=== PATIENT | male | born 1960 | race Caucasian/White ===

== ENCOUNTER → 2020-05-19 | Outpatient (CLI) | payer BC ==
[~2020-05-19] MED LIST: ALBUIS
[2020-05-20 11:49] LABS: Stool Occult Bld Immuno 1 Positive (NEGATIVE)
== END | disposition home or self-care (01) ==
LOC: LAB SHORT 05:15 → LAB 05:15
PROVIDERS: Nurse Practitioner Family
DX: K92.1 Melena (principal); R19.7 Diarrhea, unspecified
CPT/HCPCS: 82274

== ENCOUNTER 2021-12-15 11:31 | Day surgery (SDC) | payer BC ==
[~2021-12-15] VITALS: Ht 182.9 cm; Wt 134.6 kg
== END 2021-12-15 15:30 | disposition home or self-care (01) ==
LOC: ORSCSDS 11:31
PROVIDERS: Internal Medicine Gastroenterology
PROC: 0D758ZZ Dilation of Esophagus, Via Natural or Artificial Opening Endoscopic (ICD-10-PCS; principal; 2021-12-15 13:00)
PROC: 0DBL8ZX Excision of Transverse Colon, Via Natural or Artificial Opening Endoscopic, Diagnostic (ICD-10-PCS; principal; 2021-12-15 13:00)
PROC: 0DB78ZX Excision of Stomach, Pylorus, Via Natural or Artificial Opening Endoscopic, Diagnostic (ICD-10-PCS; principal; 2021-12-15 13:00)
DX: K92.1 Melena (principal); R11.2 Nausea with vomiting, unspecified; R13.14 Dysphagia, pharyngoesophageal phase; D12.3 Benign neoplasm of transverse colon; Z86.010 Personal history of colon polyps; R10.13 Epigastric pain; K44.9 Diaphragmatic hernia without obstruction or gangrene; K57.30 Diverticulosis of large intestine without perforation or abscess without bleeding; K64.8 Other hemorrhoids; K22.10 Ulcer of esophagus without bleeding; Z87.891 Personal history of nicotine dependence
CPT/HCPCS: 88305; 88342; C1726; J0330; J0461; J2405; J2704

== ENCOUNTER 2024-08-07 06:44 | Observation (INO) | payer BC ==
[2024-08-07] VITALS (14 sets, daily range): BP systolic 135–175; BP diastolic 80–101
[~2024-08-07] VITALS: Ht 182.9 cm; Wt 112.0 kg
[~2024-08-07 06:44] MED LIST changes: +ALBU90OI INH; -ALBUIS; +Acetaminophen 500 MG Tab PO SCH; +Lactated Ringer's 1,000 ML IV SCH; +OMEP20ER PO
[2024-08-07] MEDS ORDERED: Bupivacaine 0.5% HCl 5 MG/ML 30MLVIAL ONE (07:07)
[2024-08-07] MEDS ORDERED: propofoL 20 ML IV ONE (07:25)
[2024-08-07] MEDS ORDERED: FentaNYL Citrate 50 MCG/ML 5 ML Injection ONE ×2 (07:26→08:48)
[2024-08-07] MEDS ORDERED: Ondansetron HCl 2 MG / ML 2ML Vial ONE (07:26)
[2024-08-07] MEDS ORDERED: Rocuronium Bromide 10 MG/ML 5ML Injection IV ONE ×3 (07:26→10:24)
[2024-08-07] MEDS ORDERED: Lidocaine HCl 2% 20 ML MDV ONE (07:26)
[2024-08-07] MEDS ORDERED: Dexamethasone Sod Phos 10 MG/ML 1ML VIAL ONE (07:26)
[2024-08-07] MEDS ORDERED: Ketorolac Tromethamine 30mg Vial ONE (07:26)
--- NOTE | 2024-08-07 07:36 | NUR ---
Ambulatory in Day SurgeryPre-Op teaching done. Pt verbalizes understanding. History, Chart, Medications and Allergies reviewed before start of procedure.Patient confirms NPO status and agrees with scheduled surgery. Patient reports completing Chlorhexadine shower X2 prior to admission to hospital.
[2024-08-07] MEDS ORDERED: Glycopyrrolate 0.2 MG/ML 5ML VIAL ONE (08:19)
[2024-08-07] MEDS ORDERED: Sugammadex Sodium 200 MG/2ML SDV (100 MG/ML) ONE (08:38)
[2024-08-07] MEDS ORDERED: FentaNYL Citrate 50 MCG/ML 2 ML Injection ONE ×3 (10:32→12:14)
[2024-08-07] MEDS ORDERED: FLU VACC TS2024-25(6MOS UP)/PF 45 MCG/0.5 ML SYRINGE IM SCH (12:10)
[2024-08-07] MEDS ORDERED: Ondansetron HCl 2 MG / ML 2ML Vial IV PRN (12:10)
--- NOTE | 2024-08-07 12:45 | NUR ---
ARRIVAL TO UNIT PT ARRIVED TO UNIT FROM PACU VIA GURNEY, SLID WITH SHEET. PT TOLERATED WELL. CURRENTLY REPORTS NO PAIN. ASKED FOR WATER, TOLERATING SMALL SIPS WELL. SPOUSE AT BEDSIDE. PT ON 2L NASAL CANULA, SATS 93%, CURRENTLY ATTEMPTING TO REST. LAP SITES CDI. CALL LIGHT IN REACH, EDUCATED PT ON IMPORTANCE OF CALLING AT FIRST SIGNS OF PAIN INCREASING.
[2024-08-07] MEDS ORDERED: HYDROmorphone HCl/Pf 1MG SYR IV PRN (13:15)
[2024-08-07] MEDS ORDERED: Acetaminophen 325 MG TABLET PO PRN (13:15)
[2024-08-07] MEDS ORDERED: OxyCODONE HCL 5 MG TAB PO PRN (13:15)
[2024-08-07] MEDS ORDERED: Metoclopramide HCl 5MG / ML 2ML Vial IV PRN (13:45)
[2024-08-07] MEDS ORDERED: Prochlorperazine Edisylate 10 mg Vial IV PRN (13:45)
--- NOTE | 2024-08-07 17:22 | NUR ---
SHIFT SUMMARY S/P FUNDOPLICATION. PT TOLERATING CLEAR LIQUIDS AT THIS TIME. WANTED TO TRY FULL LIQUID DIET FOR DINNER. EDUCATED PT ON TAKING HIS TIME EATING AND TO NOTIFY IF HE HAS ANY NAUSEA. PT AGREEABLE. PAIN TOLERABLE AT THIS TIME. TITRATING OXYGEN DOWN. LAP SITES REMAIN UNCHANGE SINCE ARRIVAL. SPOUSE AT BEDSIDE. PT DENIES FURTHER NEEDS AT THIS TIME.
[2024-08-08 02:10] VITALS: BP 167/97
--- NOTE | 2024-08-08 02:43 | NUR ---
CONSULT CALL TO MD ANSWERING SERVICE IN RELATION TO PT HYPERTENSION, AWAITING RETURN CALL
--- NOTE | 2024-08-08 03:34 | NUR ---
SPOKE WITH DR CHAPARRO REGARDING PTS BP WITH NO NEW ORDERS RECEIVED AND DR CHAPARRO ADVISED ME TO HAVE PTS NURSE CONTINUE TO MONITOR THROUGH THE NIGHT.
--- NOTE | 2024-08-08 04:05 | NUR ---
SHIFT SUMMARY POD 1 JONI PARAESOPHAGELA HERNIA. NO ACUTE CHANGES OVERNIGHT. VSS, PT HYPERTENSIVE POST-OP, MONITORING PER MD ORDERS. TOLERATING FULL LIQUID DIET. AMB SBA R/T PAIN. VOIDING. PT REPORTS PAIN IN MID CHEST & ABD, STATES "IT FEELS DIFFICULT TO TAKE A DEEP BREATH BECAUSE OF THE PAIN." PT EDUCATED c RELAXATION TECHNIQUES, DEEP BREATHING ENCOURAGED. PT REPORTS PAIN TOLERABLE AT THIS TIME, MEDICATED PER EMAR. PT EDUCATED ON SPLINTING TECHNIQUE WHEN COUGHING. LAP SITE x4 C/D/I c MIN BRUISING. CALL LIGHT IN REACH, BED IN LOWEST POSITION, WILL REPORT TO DAY RN.
[2024-08-08 05:51] LABS: Hemoglobin 14.7 g/dL (13.5-17.5); Mean Corpuscular HGB 30.7 pg (26.0-34.0); Mean Corpuscular HGB Conc 33.4 g/dL (31.5-36.5); Mean Corpuscular Volume 92 fL (80-100); Mean Platelet Volume 11.2 fL (9.1-12.4); Platelet Count 300 K/mm3 (150-400); RDW Standard Deviation 43.8 fL (35.1-46.3); Red Blood Cell Count 4.79 M/mm3 (4.30-5.90)
[2024-08-08 07:27] VITALS: BP 154/95
[2024-08-08] MEDS ORDERED: Enoxaparin 40 MG/0.4 ML SYR SC SCH (09:00)
[2024-08-08] MEDS ORDERED: Albuterol HFA200 ACT/6.7 GM INH INH PRN (09:25)
--- NOTE | 2024-08-08 09:26 | NUR ---
PT REPORTED SOME SHORTNESS OF BREATH UPON AM ASSESSMENT. PT REPORTED SOME CHEST MUSCLE SORENESS WELL. PT REPORTS TAKING HIS HOME ALBUTEROL INHALER WHILE IN THE HOSPITAL BUT STATES THE INHALER BROKE. REQUESTED THAT PT NOT TAKE ANY OF HIS HOME MEDICATIONS AND INSTEAD ALLOW HOSPITAL STAFF TO ADMINISTER ALL MEDICATIONS. ORDER OBTAINED FROM DR. CHAPARRO FOR ALBUTEROL INHALER AT PT'S HOME DOSE. RESPIRATORY THERAPY NOTIFIED OF ORDER. PT REPORTS SHORTNESS OF BREATH HAS IMPROVED AT THIS TIME.
[2024-08-08] MEDS ORDERED: Polyethylene Glycol 3350 17 gm PO ONE (12:15)
[2024-08-08] MEDS ORDERED: Simethicone 80 MG Chew PO ONE (12:15)
[2024-08-08] MEDS ORDERED: Acetaminophen650 M1 PO (13:44)
[2024-08-08] MEDS ORDERED: OXYC5 PO (13:45)
[2024-08-08 14:00] VITALS: BP 150/91
--- NOTE | 2024-08-08 14:11 | NUR ---
DISCHARGE PT AND HIS SPOUSE WERE PROVIDED WITH WRITTEN AND VERBAL DISCHARGE INSTRUCTIONS; THEY REPORTED UNDERSTANDING. AT TIME OF DISCHARGE PT HAS BEEN ABLE TO TOLERATE PO, HE REPORTS HE HAS NOT PASSED FLATUS (DR. PABLO AWARE). PT ABLE TO AMBULATE IN THE [place]. PAIN MANAGED AT TIME OF DISCHARGE. BP SLIGHTLY ELEVATED 150/91, PT EDUCATED TO FOLLOW-UP WITH PCP REGARDING BLOOD PRESSURE, PT REPORTS HE HAS NOT SEEN HIS PCP IN 2-3 YEARS. PT AMBULATED OUT INDEPENDENTLY AT 1411.
== END 2024-08-08 14:10 | disposition home or self-care (01) ==
LOC: ORSCMMR 06:44 → ORD 08:00 → EDSTATUS 08:00 → ORSCMMR 08:00 → SURS 12:22 → ORSCMMR 12:23 → SURS 13:20
PROVIDERS: ADMIT Surgery
PROC: 0BUT4JZ Supplement Diaphragm with Synthetic Substitute, Percutaneous Endoscopic Approach (ICD-10-PCS; principal; 2024-08-07 08:00)
DX: K44.9 Diaphragmatic hernia without obstruction or gangrene (principal); K21.9 Gastro-esophageal reflux disease without esophagitis; J45.909 Unspecified asthma, uncomplicated; E66.811 Obesity, class 1; Z68.33 Body mass index [BMI] 33.0-33.9, adult; Z87.891 Personal history of nicotine dependence; Z79.899 Other long term (current) drug therapy; Z88.5 Allergy status to narcotic agent; Z91.048 Other nonmedicinal substance allergy status
CPT/HCPCS: 36415; 85027; 94760; A9270; C1781; J1100; J1171; J1650; J1885; J2405; J2704; J3010; J7120

== ENCOUNTER 2024-10-24 10:32 | Emergency (ER) | payer BC ==
[~2024-10-24] VITALS: Ht 182.9 cm; Wt 108.0 kg
[~2024-10-24 10:32] MED LIST changes: -Acetaminophen 500 MG Tab PO SCH; +Acetaminophen650 M1 PO; -Lactated Ringer's 1,000 ML IV SCH; +OXYC5 PO
[2024-10-24] MEDS ORDERED: NS 1,000 ML IV SCH (11:25)
[2024-10-24] MEDS ORDERED: OxyCODONE 5 mg/Acetamin 325 mg TABLET PO ONE (11:30)
[2024-10-24] MEDS ORDERED: Ondansetron HCl 2 MG / ML 2ML Vial IV ONE (11:30)
[2024-10-24 11:41] LABS: BASOPHILS ABSOLUTE AUTO 0.08 K/mm3 (0.00-0.23); BASOPHILS PERCENT AUTO 0 % (0-2); EOSINOPHILS ABSOLUTE AUTO 0.03 K/mm3 (0.00-0.68); EOSINOPHILS PERCENT AUTO 0 % (0-6); Hematocrit 36.1 % (37.0-53.0); Hemoglobin 12.6 g/dL (13.5-17.5); IMMATURE GRAN ABSOLUTE AUTO 0.15 K/mm3 (0.00-0.10); IMMATURE GRAN PERCENT AUTO 1 % (0-1); LYMPHOCYTES ABSOLUTE AUTO 1.21 K/mm3 (0.84-5.20); LYMPHOCYTES PERCENT AUTO 6 % (21-46); MONOCYTES ABSOLUTE AUTO 2.47 K/mm3 (0.16-1.47); MONOCYTES PERCENT AUTO 12 % (4-13); Mean Corpuscular HGB 30.3 pg (26.0-34.0); Mean Corpuscular HGB Conc 34.9 g/dL (31.5-36.5); Mean Corpuscular Volume 87 fL (80-100); Mean Platelet Volume 10.6 fL (9.1-12.4); NEUTROPHILS ABSOLUTE AUTO 16.76 K/mm3 (1.96-9.15); NEUTROPHILS PERCENT AUTO 81 % (41-73); Platelet Count 337 K/mm3 (150-400); RDW Coefficient Variation 12.7 % (11.7-14.2); RDW Standard Deviation 40.6 fL (35.1-46.3); Red Blood Cell Count 4.16 M/mm3 (4.30-5.90)
[2024-10-24 11:54] LABS: Albumin, Blood 2.8 g/dL (3.4-5.0); Albumin/Globulin Ratio 0.6 (0.8-1.8); Bilirubin, Total 0.9 mg/dL (0.1-1.0); Bun/Creatinine Ratio 17.9 (12.0-20.0); Calcium, Blood 8.7 mg/dL (8.5-10.1); Creatinine, Blood 0.61 mg/dL (0.60-1.20); Globulin, Blood 4.7 g/dL (2.2-4.0); Potassium, Blood 3.5 mmol/L (3.5-5.5); Total Protein, Blood 7.5 g/dL (6.4-8.2)
[2024-10-24 13:43] LABS: Source, Urine Clean Catch
[2024-10-24 13:47] LABS: Appearance, Urine Clear (Clear); Bilirubin, Urine Neg (Neg); Blood, Urine 5+ (Neg); Color, Urine Amber (P-Yellow); Glucose Qualitative, Urine Neg (Neg); Ketones, Urine 1+ (Neg); Leukocyte Esterase, Urine 1+ (Neg); Nitrite, Urine Neg (Neg); Protein, Urine 3+ (Neg); Urobilinogen, Urine 2+ (Normal); pH, Urine 6.5 (5.0-8.0)
[2024-10-24 14:10] LABS: Bacteria Mod /hpf; Red Blood Cells, Urine 25-50 /hpf (0-2); Squamous Epithelial Cells Rare /hpf (Few)
[2024-10-24 16:30] VITALS: BP 129/82
[2024-10-24] MEDS ORDERED: CEPH250A PO (19:40)
== END 2024-10-24 17:00 | disposition home or self-care (01) ==
LOC: ER 10:32
PROVIDERS: Student in an Organized Health Care Education/Training Program
DX: R10.13 Epigastric pain (principal); J06.9 Acute upper respiratory infection, unspecified; N39.0 Urinary tract infection, site not specified; Z98.890 Other specified postprocedural states; Z88.8 Allergy status to other drugs, medicaments and biological substances; Z87.891 Personal history of nicotine dependence
CPT/HCPCS: 71260; 74177; 80053; 81001; 83605; 83690; 85025; 87086; 96361; 96374-59; 99284-25; A9270; J2405; J7030; Q9967

== ENCOUNTER 2024-11-24 13:48 | Day surgery (SDC) | payer BC ==
[~2024-11-24] VITALS: Ht 182.9 cm; Wt 98.5 kg
[~2024-11-24 13:48] MED LIST changes: +CEPH250A PO; +Glycopyrrolate 0.2 MG/ML 1MLVIAL ONE; +Lactated Ringer's 1,000 ML IV ONE; +Lidocaine 2% 5 ML SDV ONE; +Lidocaine HCl/Pf 1% 5 ML VIAL ONE; +Methylene Blue 1% 100 MG/10 ML VIAL ONE; +Ondansetron HCl 2 MG / ML 2ML Vial ONE; +ePHEDrine Sulfate 50 MG/ML 1ML Injection ONE; +propofoL 50 ML IV ONE
[2024-11-24] MEDS ORDERED: Diflucan100 MG (14:36)
[2024-11-24] MEDS ORDERED: AMOX-CLAV 875-1 EAC5 PO (14:37)
[2024-11-24] MEDS ORDERED: Lactated Ringer's 1,000 ML IV ONE (14:51)
[2024-11-24 15:58] VITALS: BP 120/78
== END 2024-11-24 15:45 | disposition home or self-care (01) ==
LOC: ORSCSDS 13:48
PROVIDERS: Surgery
PROC: 0DJ08ZZ Inspection of Upper Intestinal Tract, Via Natural or Artificial Opening Endoscopic (ICD-10-PCS; principal; 2024-11-24 15:15)
DX: R10.13 Epigastric pain (principal); R63.4 Abnormal weight loss; K22.2 Esophageal obstruction; Z98.890 Other specified postprocedural states; R61 Generalized hyperhidrosis; Z87.891 Personal history of nicotine dependence; Z79.899 Other long term (current) drug therapy
CPT/HCPCS: C1726; J2003; J2405; J2704; J7120; Q9968

== ENCOUNTER 2024-11-26 09:21 | Inpatient (IN) | payer BC ==
[~2024-11-26] VITALS: Ht 182.9 cm; Wt 98.5 kg
[~2024-11-26 09:21] MED LIST changes: +AMOX-CLAV 875-1 EAC5 PO; +Diflucan100 MG; -Glycopyrrolate 0.2 MG/ML 1MLVIAL ONE; -Lactated Ringer's 1,000 ML IV ONE; -Lidocaine 2% 5 ML SDV ONE; -Lidocaine HCl/Pf 1% 5 ML VIAL ONE; -Methylene Blue 1% 100 MG/10 ML VIAL ONE; -Ondansetron HCl 2 MG / ML 2ML Vial ONE; -ePHEDrine Sulfate 50 MG/ML 1ML Injection ONE; -propofoL 50 ML IV ONE
[2024-11-26] MEDS ORDERED: Ampicillin Sod/Sulbactam Sod 3 GM in NS 100 ML IV ONE (10:00)
[2024-11-26] MEDS ORDERED: Ondansetron HCl 2 MG / ML 2ML Vial IV ONE (10:10)
[2024-11-26 10:34] LABS: BASOPHILS ABSOLUTE AUTO 0.05 K/mm3 (0.00-0.23); BASOPHILS PERCENT AUTO 0 % (0-2); EOSINOPHILS ABSOLUTE AUTO 0.08 K/mm3 (0.00-0.68); EOSINOPHILS PERCENT AUTO 1 % (0-6); Hematocrit 31.7 % (37.0-53.0); Hemoglobin 10.2 g/dL (13.5-17.5); IMMATURE GRAN ABSOLUTE AUTO 0.06 K/mm3 (0.00-0.10); IMMATURE GRAN PERCENT AUTO 1 % (0-1); LYMPHOCYTES ABSOLUTE AUTO 1.62 K/mm3 (0.84-5.20); LYMPHOCYTES PERCENT AUTO 13 % (21-46); MONOCYTES ABSOLUTE AUTO 0.82 K/mm3 (0.16-1.47); MONOCYTES PERCENT AUTO 7 % (4-13); Mean Corpuscular HGB 28.9 pg (26.0-34.0); Mean Corpuscular HGB Conc 32.2 g/dL (31.5-36.5); Mean Corpuscular Volume 90 fL (80-100); Mean Platelet Volume 9.8 fL (9.1-12.4); NEUTROPHILS ABSOLUTE AUTO 9.79 K/mm3 (1.96-9.15); NEUTROPHILS PERCENT AUTO 79 % (41-73); Platelet Count 519 K/mm3 (150-400); RDW Coefficient Variation 13.3 % (11.7-14.2); RDW Standard Deviation 43.9 fL (35.1-46.3); Red Blood Cell Count 3.53 M/mm3 (4.30-5.90); White Blood Cell Count 12.42 K/mm3 (4.00-11.30)
[2024-11-26 10:44] LABS: International Normalized Ratio 1.16; Prothrombin Time Results 12.3 Sec (9.7-11.5)
[2024-11-26 10:56] LABS: Albumin, Blood 2.4 g/dL (3.4-5.0); Albumin/Globulin Ratio 0.4 (0.8-1.8); Bilirubin, Total 0.3 mg/dL (0.1-1.0); Bun/Creatinine Ratio 12.6 (12.0-20.0); Calcium, Blood 9.1 mg/dL (8.5-10.1); Creatinine, Blood 0.79 mg/dL (0.60-1.20); Globulin, Blood 5.8 g/dL (2.2-4.0); Potassium, Blood 3.6 mmol/L (3.5-5.5); Total Protein, Blood 8.2 g/dL (6.4-8.2)
[2024-11-26] MEDS ORDERED: Heparin Sodium 5000 Units/ML 1ML MDV IV ONE ×2 (11:00→21:00)
[2024-11-26] MEDS ORDERED: Heparin Sodium,Porcine/0.5 NS 500 ML IV SCH (11:00)
[2024-11-26] MEDS ORDERED: Lactated Ringer's 1,000 ML IV SCH (11:55)
[2024-11-26] MEDS ORDERED: Ondansetron HCl 2 MG / ML 2ML Vial IV PRN (11:55)
[2024-11-26 13:21] VITALS: BP 109/76
[2024-11-26] MEDS ORDERED: Albuterol HFA200 ACT/6.7 GM INH INH PRN (15:00)
[2024-11-26 15:19] VITALS: BP 107/73
[2024-11-26] MEDS ORDERED: Pantoprazole Sodium 40 MG Injection IV SCH (16:30)
--- NOTE | 2024-11-26 16:42 | NUR ---
PT ARRIVED FROM ED @ 1300 VIA STRETCHER. HE AMBULATED TO BED AND THEN RESTROOM W/SBA. A&Ox4 ON RA AND ON A HEP GTT AND LR PER EMAR. ADMISSION HISTORY AND ASSESSMENT COMPLETED. PT NOW HAS A SOFT, BITE SIZED DIET. PT IS SLIGHTLY JAUNDICED.
[2024-11-26] MEDS ORDERED: Ampicillin Sod/Sulbactam Sod 3 GM in NS 100 ML IV SCH (18:00)
[2024-11-26 19:50] VITALS: BP 110/73
[2024-11-26 23:54] VITALS: BP 112/80
[2024-11-27 03:09] VITALS: BP 104/73
[2024-11-27 03:31] LABS: Hematocrit 30.5 % (37.0-53.0); Hemoglobin 9.8 g/dL (13.5-17.5); Mean Corpuscular HGB 28.8 pg (26.0-34.0); Mean Corpuscular HGB Conc 32.1 g/dL (31.5-36.5); Mean Corpuscular Volume 90 fL (80-100); Mean Platelet Volume 10.2 fL (9.1-12.4); Platelet Count 392 K/mm3 (150-400); RDW Coefficient Variation 13.5 % (11.7-14.2); RDW Standard Deviation 44.5 fL (35.1-46.3); White Blood Cell Count 9.85 K/mm3 (4.00-11.30)
[2024-11-27 04:00] LABS: Albumin, Blood 2.1 g/dL (3.4-5.0); Anion Gap 9 mmol/L (3-11); Blood Urea Nitrogen 10 mg/dL (8-24); Bun/Creatinine Ratio 11.4 (12.0-20.0); CO2, Blood 26 mmol/L (21-32); Calcium, Blood 8.5 mg/dL (8.5-10.1); Chloride, Blood 104 mmol/L (98-108); Creatinine, Blood 0.88 mg/dL (0.60-1.20); Glomerular Filtration Rate 96 (60-); Glucose, Blood 105 mg/dL (70-99); Magnesium, Blood 1.9 mg/dL (1.6-2.4); Phosphorus, Blood 3.6 mg/dL (2.5-4.9); Potassium, Blood 3.9 mmol/L (3.5-5.5); Sodium, Blood 135 mmol/L (136-145)
[2024-11-27] MEDS ORDERED: Dose Adjust by Pharmacy XX STA (04:04)
[2024-11-27] MEDS ORDERED: Heparin Sodium 5000 Units/ML 1ML MDV IV ONE (04:05)
--- NOTE | 2024-11-27 04:17 | NUR ---
SHIFT SUMMARY: PT AOX4, ABLE TO MAKE NEEDS KNOWN TO STAFF. ON TELE W/ SR, BBB, HRS >80S. DENIES CP/PRESSURE. SOB, DENIES PAIN IN ABDOMEN. HEP/GTT CURRENTLY RUNNING PER EMAR. PT UTILIZES CALL LIGHT D/T FALL RISK W/ IV TUBING, NO ACUTE CHANGES THIS SHIFT. BED AT LOWEST POSITION AND CALL LIGHT WITHIN REACH. PT RESTING COMFORTABLY IN BED, BREATHING EVEN AND UNLABORED.
[2024-11-27 07:35] VITALS: BP 110/75
[2024-11-27 11:14] VITALS: BP 109/76
[2024-11-27] MEDS ORDERED: Apixaban 5 MG Tab PO SCH (12:00)
--- NOTE | 2024-11-27 14:20 | NUR ---
Pt. is awake in bed and welcomess my visit. Spouse is at bedside. Facilitate a short life review as I introduce myself. Listen with interest and empathy. Pt. displays evidence of being alert and engaged. Aft er further life story prayed with the Pt. Both Pt. and spouse verbalize gratitude for the spiritual care visit.
[2024-11-27 15:53] VITALS: BP 123/81
--- NOTE | 2024-11-27 16:37 | NUR ---
SHIFT SUMMARY PT A&Ox4, CALLS AND COMMUNICATES NEEDS APPROPRIATELY. BP STABLE, SINUS 60's, DENIES CP/PRESSURE. SpO2> 92% RA, DENIES SOB. IND IN ROOM. NO C/O PAIN. ABD SOFT AND NON-TENDER. HEPARIN gtt DISCONTINUED PER ORDER, SWITCHED TO PO ELIQUIS. NO OTHER EVENTS, WILL REPORT TO ONCOMING RN.
[2024-11-27 19:39] VITALS: BP 121/78
[2024-11-27 23:10] VITALS: BP 133/85
[2024-11-28 03:41] VITALS: BP 125/84
--- NOTE | 2024-11-28 04:46 | NUR ---
SHIFT SUMMARY PT A&O X4, ABLE TO MAKE NEEDS KNOWN, INDEPENDENT IN ROOM. VSS, AFEBRILE, SPO2 >95% ON RA. LR AND ABX INFUSING PER EMAR. PT DENIES CP OR SOB THIS SHIFT. HE IS RESTING IN BED, CALL LIGHT IN REACH, BREATHING IS EVEN AND UNLABORED.
--- NOTE | 2024-11-28 09:53 | NUR ---
D/C LR IVF PER PER HACK
[2024-11-28] MEDS ORDERED: PANTOPRAZOLE SO PO (11:30)
[2024-11-28] MEDS ORDERED: ELIQUIS5 M2 PO (11:30)
--- NOTE | 2024-11-28 12:30 | NUR ---
DISCHARGE REVIEWED WITH PT AND SPOUSE. IV PULLED BY AIDE AND TELE RETUREND BY AIDE. PT TO WALK SELF WITH SPOUSE TO DOOR. PT VERBALIZED UNDERSTANDING MEDS, FOLLOWFUP, AND INST. PT TO DOOR AT 1231
[2024-11-29 23:54] LABS: HOMOCYSTEINE, TOTAL 12 umol/L (0-15)
[2024-11-29 23:55] LABS: B2GLYCOPROTEIN 1, IGG ANTIBODY <10 SGU (<=20); B2GLYCOPROTEIN 1, IGM ANTIBODY <10 SMU (<=20)
[2024-11-30 10:15] LABS: CARDIOLIPIN ANTIBODY IGG <10 GPL (<=14); CARDIOLIPIN ANTIBODY IGM <10 MPL (<=12)
[2024-11-30 14:04] LABS: ANTI-XA QUALITATIVE INTERP Present (Not Present); ANTICOAG MEDICATION NEUTRALIZ Hepzyme (Not Performed); DRVVT 1:1 MIX RATIO Not Performed (<=1.20); DRVVT CONFIRMATION RATIO Not Performed (<=1.20); DRVVT SCREEN RATIO 1.07 (<=1.20); HEXAGONAL PHOSPHOLIPID CONFIRM Not Performed s (<=7.9); NEUTRALIZED DRVVT SCREEN RATIO Not Performed (<=1.20); NEUTRALIZED PTT-LA RATIO 1.16 (<=1.20); PROTHROMBIN TIME (PT) 16.6 s (12.0-15.5); PTT-LA RATIO 2.64 (<=1.20); THROMBIN TIME (TT) 83.2 s (<=19.5)
[2024-11-30 14:05] LABS: PROTEIN C FUNCTIONAL 72 % (83-168)
[2024-11-30 14:59] LABS: PROTEIN S AG FREE 148 % (74-147)
[2024-11-30 16:14] LABS: APC RESISTANCE 4.11 (>=2.00); FACTOR V LEIDEN BY PCR Not Done; FACV REF SPECIMEN Not Done
[2024-11-30 16:40] LABS: ANTITHROMBIN, ENZYM (ACTIVITY) 75 % (76-128)
[2024-12-04] MEDS ORDERED: Apixaban 5 MG Tab PO SCH (09:00)
== END 2024-11-28 12:46 | disposition home or self-care (01) | DRG 441 ==
LOC: ER 09:21 → PCU 11:53 → ERHOLD 11:53 → PCU 12:55
PROVIDERS: Emergency Medicine; ADMIT Internal Medicine
DX: I81 Portal vein thrombosis (principal); K75.0 Abscess of liver; J45.909 Unspecified asthma, uncomplicated; L40.9 Psoriasis, unspecified; E66.811 Obesity, class 1; Z68.33 Body mass index [BMI] 33.0-33.9, adult; Z98.890 Other specified postprocedural states; Z87.891 Personal history of nicotine dependence; Z88.8 Allergy status to other drugs, medicaments and biological substances; Z79.899 Other long term (current) drug therapy; K21.9 Gastro-esophageal reflux disease without esophagitis; R10.13 Epigastric pain; R63.4 Abnormal weight loss; K22.2 Esophageal obstruction; R61 Generalized hyperhidrosis
CPT/HCPCS: 36415; 71260; 74177; 80053; 80069; 83605; 83735; 85025; 85027; 85384; 85520; 85610; 85730; 86850; 86900; 86901; 93975; 94760; 96365; 96375; 99284-25; A9270; C1726; G0378; J0295; J1644; J2003; J2405; J2470; J2704; J7120; Q9967; Q9968